=== PATIENT | female | born 1970 | race Caucasian/White ===

== ENCOUNTER 2017-09-03 17:33 | Emergency (ER) | payer OTHER ==
[~2017-09-03] VITALS: Ht 162.6 cm; Wt 68.0 kg
[2017-09-03 17:38] VITALS: Ht 162.6 cm; Wt 68.0 kg
[2017-09-03] MEDS ORDERED: LIDOCAINE/EPINEPHRINE 1% 20 ML VIAL INFIL STA (18:28)
[2017-09-03] MEDS ORDERED: OPTIRAY 320 IV PRN (18:45)
[2017-09-03] MEDS ORDERED: MoRPHine SULFATE 4 MG/ML 1 ML CARP\\VIAL IV STA (18:50)
[2017-09-03 18:54] LABS: ISTAT CREATININE 0.7 mg/dl (0.6-1.3); ISTAT HEMOGLOBIN 13.6 g/dl (12.0-16.0); ISTAT IONIZED CALCIUM 1.12 mmol/l (1.12-1.32)
--- NOTE | 2017-09-03 20:31 | DIAGNOSTIC IMAGING REPORT ---
CT SOFT TISSUE NECK WITH CT DOSE: 472.70 mGy.cm CLINICAL HISTORY: Kicked in face by horse, mouth and nasal trauma FACIAL PAIN TECHNIQUE: Helical images were acquired during intravenous administration of 116 cc of Optiray 320. A dose lowering technique was utilized adhering to the principles of ALARA. COMPARISON STUDY: None. FINDINGS: The visualized portions of the lung apices are unremarkable. No thyroid masses are visualized. No salivary gland masses are visualized. There are no pathologically enlarged cervical lymph nodes. No necrotic nodes are evident. There are no fluid collections suspicious for abscess. There is no evidence of airway compromise. No mucosal space masses are visualized. There is an air-fluid level within the frontal sinus. There is fluid present within the anterior aspect of both ethmoid sinuses. Visualized portions of the orbits appear intact. The zygomatic arches appear intact. There is a right pterygoid plate fracture. There is a maxillary fracture involving the heart palate. There are fractures involving the anterior and inferior ernst of both maxillary sinuses as well as the lateral wall of the right maxillary sinus. There is air within the parapharyngeal spaces. IMPRESSION: 1. Acute fracture of the right pterygoid plate 2. Acute fracture of the maxilla with involvement of the hard palate 3. Acute fractures involving the anterior and inferior ernst of the left maxillary sinus, and anterior, inferior and lateral ernst of the right maxillary sinus. Electronically signed by: Juan Luis Johnson M.D. 09/03/2017 8:30 PM Dictated Date/Time: 09/03/2017 8:18 PM
[2017-09-03] MEDS ORDERED: CHLORHEXIDINE GLUCONATE 0.12% 480 ML MT STA (21:11)
[2017-09-03] MEDS ORDERED: TETANUS IMMUNE GLOBULIN (HUMAN) 250 UNITS/ML SYR IM. ONE (21:15)
[2017-09-03] MEDS ORDERED: DIPHTHERIA/TETANUS/PERTUSSIS 0.5 ML SYR/VIAL IM. ONE (21:15)
[2017-09-03 21:22] VITALS: TEMP 37.1
--- NOTE | 2017-09-03 21:24 | DIAGNOSTIC IMAGING REPORT ---
CT HEAD WITHOUT CONTRAST (CT) CLINICAL HISTORY: Kicked in face by horse COMPARISON STUDY: No previous studies for comparison. TECHNIQUE: Axial CT of the brain is performed from the vertex to the skull base. IV contrast was not administered for this examination. A dose lowering technique was utilized adhering to the principles of ALARA. CT DOSE: 924.66 mGy.cm FINDINGS: The study appears contrast enhancement secondary to contrast administered during a prior soft tissue neck CT. No intra or extra-axial mass lesions are visualized. There is no CT evidence of acute cortical infarction. There is no evidence of midline shift. There is no acute hemorrhage. No calvarial fractures are visualized. There are patchy white matter hypodensities likely on a small vessel basis. There is no evidence of pathologic ventricular dilatation. Both maxillary sinuses are opacified. There are bilateral maxillary sinus fractures. IMPRESSION: 1. Bilateral maxillary sinus fractures 2. No evidence of acute intracranial hemorrhage. Electronically signed by: Juna Luis Johnson M.D. 09/03/2017 9:22 PM Dictated Date/Time: 09/03/2017 9:21 PM
[2017-09-03] MEDS ORDERED: AMOXICIL/CLAVU 875MG HOME PACK PO STA (21:28)
[2017-09-03] MEDS ORDERED: OXYCODONE IR HOME PACK PO STA (21:28)
[2017-09-03] MEDS ORDERED: AMOXICILLIN/CLAVULANATE TAB 875 MG TAB PO STA (21:28)
--- NOTE | 2017-09-03 21:28 | DIAGNOSTIC IMAGING REPORT ---
CT OF THE CERVICAL SPINE CLINICAL HISTORY: Neck pain status post trauma COMPARISON STUDY: No previous studies for comparison. CT DOSE: TECHNIQUE: CT scan of the cervical spine was performed from the skull base to the thoracic inlet. Images are reviewed in the axial, sagittal, and coronal planes. IV contrast was not administered for this examination. A dose lowering technique was utilized adhering to the principles of ALARA. FINDINGS: The visualized portions of the lung apices reveal no evidence of pneumothorax. The prevertebral soft tissues are normal. No fractures or subluxations are visualized. There are mild multilevel degenerative changes IMPRESSION: No evidence of acute fracture or traumatic subluxation. Electronically signed by: Juan Luis Johnson M.D. 09/03/2017 9:27 PM Dictated Date/Time: 09/03/2017 9:23 PM
--- NOTE | 2017-09-03 21:36 | EMERGENCY ROOM VISIT NOTE ---
ED Visit Note First contact with patient: 18:22 This Patient was discussed with the physician Auto Slip Cover Installer, Wei Rogers PA-C. The pertinent historical and physical exam findings were confirmed. I agree with the studies ordered and with the interpretations of these studies. I agree with the disposition and care plan.
[2017-09-03] MEDS ORDERED: OXYC1TAB3 PO (21:47)
[2017-09-03] MEDS ORDERED: AMOX875T PO (21:47)
[2017-09-03 21:49] VITALS: BP 134/84; PULSE 83; O2SAT 97
--- NOTE | 2017-09-03 21:53 | EMERGENCY ROOM VISIT NOTE ---
ED Visit Note First contact with patient: 18:22 Chief Complaint: "Horse kicked her in face". History of Present Illness: This patient is a 46-year-old female who presents to the Emergency Department via private vehicle for evaluation of their left upper lip laceration and associated injuries. Patient sustained the laceration earlier today around 4 PM when she was kicked in the face by a mature horse. TThey report no loss of consciousness but do note that it is painful to swallow. They deny any headache, visual disturbance, nausea, vomiting, or posterior neck pain. Patient rates his current discomfort as a 3/10. Patient' s Tetanus status is NOT currently up-to-date. Medications: As noted below Allergies: None PMH: No pertinent SHx: Patient lives locally with family. ROS: All pertinent positive and negative review of systems are appropriately documented in the History of Present Illness. Physical Exam: VITAL SIGNS - Vital signs and nursing notes were reviewed. Stable. GENERAL -46-year-old female appearing her stated age. Communicates well with provider and answers questions appropriately. SKIN - There is a 3 cm laceration noted on the patient's left upper lip that extends from just below the left nostril, inferiorly to the border, and to the inner lip. The edges gape apart with traction. There is minimal active bleeding appreciated. No deep structures including vessels, musculature, or bony structures are appreciated. HEAD - Normocephalic. No Pérez's Sign or Raccoon's Eyes. No depressed skull fractures palpable. EYES - PERRL with EOMI bilaterally. Without subconjunctival hemorrhage. No hyphema EARS - No deformities of external structures noted on gross examination bilaterally. No hemotympanum present. No tympanic perforation noted. NOSE - Midline and without cyanosis. No epistaxis or clear watery discharge noted. Septum midline without deviation. No septal hematoma noted. No overlying ecchymosis noted. MOUTH/OROPHARYNX - Without perioral cyanosis. Tongue midline with equal elevation of palate bilaterally. No blood noted in the oropharynx. No tonsillar hypertrophy, erythema, or exudates noted. No dental fractures noted. NECK - FROM assessed. No tenderness to palpation over the cervical spinous processes. No cervical paraspinal muscle tenderness noted. There is anterior neck tenderness. LUNGS - Chest wall symmetric without accessory muscle use, intercostals retractions, or central cyanosis. Normal vesicular breath sounds CTA B/L. No wheezes, rales, or rhonchi appreciated. CARDIAC - RRR with S1/S2. No murmur, rubs, or gallops appreciated. EXTREMITIES - No gross deformities noted of the extremities. +5/5 strength noted in UE/LE bilaterally. NEUROLOGIC - Cranial nerves II through XII grossly intact. Sensory intact to light touch throughout. PSYCH - A&O, and cooperates fully with examiner. Pt is very pleasant and interacts well with examiner. IMAGING: CT HEAD WITHOUT CONTRAST (CT) CLINICAL HISTORY: Kicked in face by horse COMPARISON STUDY: No previous studies for comparison. TECHNIQUE: Axial CT of the brain is performed from the vertex to the skull base. IV contrast was not administered for this examination. A dose lowering technique was utilized adhering to the principles of ALARA. CT DOSE: 924.66 mGy.cm FINDINGS: The study appears contrast enhancement secondary to contrast administered during a prior soft tissue neck CT. No intra or extra-axial mass lesions are visualized. There is no CT evidence of acute cortical infarction. There is no evidence of midline shift. There is no acute hemorrhage. No calvarial fractures are visualized. There are patchy white matter hypodensities likely on a small vessel basis. There is no evidence of pathologic ventricular dilatation. Both maxillary sinuses are opacified. There are bilateral maxillary sinus fractures. IMPRESSION: 1. Bilateral maxillary sinus fractures 2. No evidence of acute intracranial hemorrhage. Electronically signed by: Juan Luis Johnson M.D. 09/03/2017 9:22 PM Dictated Date/Time: 09/03/2017 9:[address] OF THE CERVICAL SPINE CLINICAL HISTORY: Neck pain status post trauma COMPARISON STUDY: No previous studies for comparison. CT DOSE: TECHNIQUE: CT scan of the cervical spine was performed from the skull base to the thoracic inlet. Images are reviewed in the axial, sagittal, and coronal planes. IV contrast was not administered for this examination. A dose lowering technique was utilized adhering to the principles of ALARA. FINDINGS: The visualized portions of the lung apices reveal no evidence of pneumothorax. The prevertebral soft tissues are normal. No fractures or subluxations are visualized. There are mild multilevel degenerative changes IMPRESSION: No evidence of acute fracture or traumatic subluxation. Electronically signed by: Juan Luis Johnson M.D. 09/03/2017 9:27 PM Dictated Date/Time: 09/03/2017 9:23 PM [~ rep ct add3]] CT SOFT TISSUE NECK WITH CT DOSE: 472.70 mGy.cm CLINICAL HISTORY: Kicked in face by horse, mouth and nasal trauma FACIAL PAIN TECHNIQUE: Helical images were acquired during intravenous administration of 116 cc of Optiray 320. A dose lowering technique was utilized adhering to the principles of ALARA. COMPARISON STUDY: None. FINDINGS: The visualized portions of the lung apices are unremarkable. No thyroid masses are visualized. No salivary gland masses are visualized. There are no pathologically enlarged cervical lymph nodes. No necrotic nodes are evident. There are no fluid collections suspicious for abscess. There is no evidence of airway compromise. No mucosal space masses are visualized. There is an air-fluid level within the frontal sinus. There is fluid present within the anterior aspect of both ethmoid sinuses. Visualized portions of the orbits appear intact. The zygomatic arches appear intact. There is a right pterygoid plate fracture. There is a maxillary fracture involving the heart palate. There are fractures involving the anterior and inferior ernst of both maxillary sinuses as well as the lateral wall of the right maxillary sinus. There is air within the parapharyngeal spaces. IMPRESSION: 1. Acute fracture of the right pterygoid plate 2. Acute fracture of the maxilla with involvement of the hard palate 3. Acute fractures involving the anterior and inferior ernst of the left maxillary sinus, and anterior, inferior and lateral ernst of the right maxillary sinus. Electronically signed by: Juan Luis Johnson M.D. 09/03/2017 8:30 PM Dictated Date/Time: 09/03/2017 8:18 PM ED Course: Patient was seen and evaluated by myself. Patient had no focal neurological deficits. Patient's exam is concerning for that of facial fractures. Patient reports no headaches, visual disturbances, nausea, vomiting, or over-lethargy. CT scan was obtained of the patient's neck. Acute fractures noted. I then obtained CT scans of the patient's head and C-spine. These were negative. Risks and benefits of performing primary wound closure versus no repair were discussed with the patient who verbalizes understanding. Verbal consent was obtained prior to performing the procedure. 4 cc of 1% buffered lidocaine with epinephrine was used to anesthetize the 3 cm lip laceration. The wound was cleansed and prepped in the typical sterile fashion utilizing normal saline. The wound was sterilely draped. Once proper anesthetization was established, the wound was further examined and demonstrated no deep involvement other than through the lip. The wound was copiously irrigated with normal saline and Betadine. The wound was closed using 4 simple, 6-0 nylon sutures with the wound edges being well approximated as well as 3 simple, 6-0 Vicryl sutures with the wound edges being well approximate it. Patient tolerated the procedure well. No complications were met. I discussed the case with the attending physician, and subsequently the on-call oral maxillofacial surgeon regard to the facial fractures. At 9:24 PM I spoke with Dr. Johnathon Westbrook. We discussed the case in detail, and it was recommended that the patient could be seen in his office in a few days, he recommended antibiotics, soft diet, and to not blow her nose. Patient received their Adacel vaccination and Hyper-Tet. Patient educated on worrisome symptoms for return visit to the Emergency Department. She'll be given pain medication. Patient discharged to home in good condition. She was also seen by the attending physician, and her airway was patent. She was given morphine here for her pain. In the evaluation and treatment of this patient, the following differential diagnoses were considered: Concussion, Contrecoup Injury, Brain Tumor, Depression, Encephalitis, Hypothyroidism, Meningitis, CVA, TIA, Migraine, Cluster Headache, Intracranial Abnormality, Intracranial Hemorrhage, Subdural Hematoma, Subarachnoid Hemorrhage, Hydrocephalus., Musculoskeletal Strain, Discitis, Cervical Spine Fracture, Cervical Spine Dislocation, Cervical Spine Subluxation, Cervical Spondylosis, Fibromyalgia, Osteoarthritis, Polymyalgia Rheumatica, Psychogenic Pain Disorder, Tumor of Soft Tissue or Spine. Current/Historical Medications Scheduled Amoxicillin & Pot Clavulanate (Augmentin 875-125 mg), 1 TAB PO BID Scheduled PRN Oxycodone Ir (Roxicodone Ir), 1-2 TAB PO Q4H PRN for Pain Allergies Coded Allergies: No Known Allergies (Unverified , 09/03/17) Vital Signs Date Time Temp Pulse Resp B/P (MAP) Pulse Ox O2 Delivery O2 Flow Rate FiO2 09/03/17 21:49 83 134/84 97 Room Air 09/03/17 21:22 37.1 77 18 120/68 96 Room Air 09/03/17 19:17 70 17 136/72 96 Room Air 09/03/17 17:38 70 18 122/81 97 Room Air Laboratory Results Test 09/03/17 18:36 Bedside Hemoglobin 13.6 g/dl (12.0-16.0) Bedside Hematocrit 40 % (37-47) Bedside Sodium 139 mEq/L (135-144) Bedside Potassium 3.7 mEq/L (3.3-5.0) Bedside Chloride 102 mEq/L (101-112) Bedside Total CO2 27 mEq/l (24-31) Anion Gap 14.0 mmol/L (16-25) Bedside Blood Urea Nitrogen 18 mg/dl (7-18) Bedside Creatinine 0.7 mg/dl (0.6-1.3) Bedside Glucose (other) 89 mg/dl (70-99) Bedside Ionized Calcium (Chloe) 1.12 mmol/l (1.12-1.32) Medications Administered Medications (Trade) Dose Ordered Sig/Mari Route Start Time Stop Time Status Last Admin Dose Admin Morphine Sulfate (MoRPHine SULFATE INJ) 4 mg NOW STAT IV 09/03/17 18:50 09/03/17 18:51 DC 09/03/17 19:18 4 MG Chlorhexidine Gluconate (Peridex Oral Soln) 15 ml NOW STAT MT 09/03/17 21:11 09/03/17 21:12 DC 09/03/17 22:00 15 ML Diphtheria/ Pertussis/Tetanus Vacc (Adacel Inj) 0.5 ml ONCE ONCE IM. 09/03/17 21:15 09/03/17 21:16 DC 09/03/17 21:25 0.5 ML Tetanus Immune Globulin (Hypertet Inj) 250 units ONCE ONCE IM. 09/03/17 21:15 09/03/17 21:16 DC 09/03/17 22:00 250 UNITS Amoxicillin/ Clavulanate Potassium (Augmentin 875MG Home Pack) 1 homepack UD STAT PO 09/03/17 21:28 09/03/17 21:30 DC 09/03/17 22:05 1 HOMEPACK Amoxicillin/ Clavulanate Potassium (Augmentin Tab) 875 mg NOW STAT PO 09/03/17 21:28 09/03/17 21:30 DC 09/03/17 22:05 875 MG Oxycodone HCl (Roxicodone Immediate Rel 5MG Home Pack) 1 homepack UD STAT PO 09/03/17 21:28 09/03/17 21:30 DC 09/03/17 22:05 1 HOMEPACK Departure Information Impression Primary Impression: Traumatic fracture of facial bones Additional Impression: Lip laceration Dispostion Home / Self-Care Condition GOOD Prescriptions Oxycodone Ir (Roxicodone Ir) 5 Mg Tab 1-2 TAB PO Q4H Y for Pain, #24 TAB For Initial Treatment Prov: Wei Rogers PA-C 09/03/17 Amoxicillin & Pot Clavulanate (Augmentin 875-125 mg) 1 Tab Tab 1 TAB PO BID for 9 Days, #18 TAB Prov: Wei Rogers PA-C 09/03/17 Referrals No Doctor, Assigned (PCP) Johnathon Westbrook D.M.D. Patient Instructions My [facility] Additional Instructions Discharge Instructions: You have received 4 sutures on your face. These sutures are NOT dissolvable and WILL need to be removed by a health care provider in 7-8 days. You can return to the Emergency Department or contact your Primary Care Provider to have the sutures removed. You case was also discussed with Dr. JOHNATHON WESTBROOK, an oral maxillofacial surgeon. He has agreed to see you in the near future. Please call first thing tomorrow to be seen in the near future (likely in [place]) You've been prescribed Augmentin to be taken one tablet twice daily for 10 days. You were given your first dose here as well as a home pack since your pharmacy is closed. The remainder was sent to your pharmacy. This is to help prevent sinusitis due to the fracture. Oxy IR for pain, be careful as this is a powerful pain medication. No operating machinery with this in your system. Peridex mouth wash to help prevent infection. Rinse and spit morning and night. Proper wound care is essential for adequate wound healing and infection prevention. You can shower and clean the wound with soap and water. Do not scour over the wound, pat dry with a towel. Do not submerse the wound (i.e. bathe or dish wash) until the sutures have been removed. You can use an antibiotic ointment with a dressing over the wound for the next 2-3 days. After this time you may leave the wound dry and open to the air. If crust develops over the wound you can use a Q-tip to apply a 1:1 peroxide:water solution to clean the wound. Look for signs of infection of the wound including: increased pain, swelling, foul discharge, streaking, or increased temperature. If any of these are noticed you should return to the Emergency Department for further assessment and treatment. Please do not blow your nose for the next 30 days. Open your mouth if you have to sneeze. Please elevate the head of your bed when sleeping for the next 5 days. please do not lie completely flat. Please do not sneeze for the next 30 days as well as you are able. Open your mouth if you have to sneeze. As with any laceration you may have received nerve damage to the surrounding tissues. This damage may or may not be permanent. You should keep the area covered with sunscreen for the first 6 months to 1 year when at risk for exposure to help minimize scarring. You can also use scar reducing creams or Vitamin E oil to help minimize scarring. If the pain would increase or if you develop increased pressure behind the eye or any vision changes (especially double vision), trouble breathing, or any other concerns please return to the emergency Department immediately. Please also follow up with your family doctor for continued tetanus immunizations by calling tomorrow. For pain control, you can use the following [id number] medicines (if >12 yo): - Regular strength (325mg/tab) Tylenol (acetaminophen) 2 tabs every 4-6 hours as needed. Do not exceed 12 tablets in a 24 hour period. Avoid taking more than 3 grams (3000 mg) of Tylenol per day. This includes any other sources of acetaminophen you may take on a regular basis. - Regular strength (200 mg/tab) Advil (ibuprofen) 1-2 tabs every 4-6 hours as needed. Do not exceed a dose of 3200 mg per day. Return to the emergency department if your symptoms worsen despite treatment course outlined above. Please return to the emergency department with any new/concerning symptoms. Problem Qualifiers
== END 2017-09-03 22:11 | disposition home or self-care (01) ==
LOC: C.EDB 17:35 → C.EDD 22:11
DX: S02.92XA Unspecified fracture of facial bones, initial encounter for closed fracture (principal); S01.511A Laceration without foreign body of lip, initial encounter; W55.12XA Struck by horse, initial encounter; Z23 Encounter for immunization